=== PATIENT | female | born 1995 | race Caucasian/White ===

== ENCOUNTER 2021-06-26 07:27 | Outpatient (CLI) | payer OTHER, SELFPAY ==
[2021-06-26 09:00] LABS: SARS-CoV-2 RNA PCR Negative (Negative)
== END 2021-06-26 07:28 | disposition home or self-care (01) ==
PROVIDERS: PCP Family Medicine; Visit Provider Family Medicine
DX: J00 Acute nasopharyngitis [common cold] (principal); Z20.822 Contact with and (suspected) exposure to COVID-19
CPT/HCPCS: C9803; U0003; U0005

== ENCOUNTER 2021-10-10 16:30 | Outpatient (CLI) | payer OTHER, SELFPAY ==
--- NOTE | ~2021-10-10 | XR_ITS ---
EXAMINATION: XR foot LT min 3V, XR toe 5th LT min 2V DATE: 10/10/2021 16:51 INDICATION: Left foot pain in the region of the fifth toe. TECHNIQUE: 1. Dorsoplantar, two oblique and lateral views of the affected foot were obtained. 2. Dorsal plantar, oblique and lateral views of the left fifth toe were obtained. COMPARISON: None. FINDINGS: Nondisplaced fracture extending across the midportion of the fused middle and distal phalanges of the fifth toe with approximately 1 mm wide fracture gap along the plantar cortex and with mild buckling along the dorsal cortex. Alignment remains essentially anatomic. No other fractures identified in the left foot. Joint spaces are normal. Moderate-sized plantar calcaneal spur. Soft tissue swelling abou t the fifth toe. IMPRESSION: 1. Nondisplaced transverse extra-articular fracture across the fused left fifth middle and distal pha langes. Reviewed, dictated and finalized at location B. [employer] IMPRESSION: 1. Nondisplaced transverse extra-articular fracture across the fused left fifth middle and distal phalanges.
== END 2021-10-10 16:31 | disposition home or self-care (01) ==
LOC: CHSIMG 16:32
PROVIDERS: PCP Family Medicine; Visit Provider Family Medicine
DX: M79.672 Pain in left foot (principal)
CPT/HCPCS: 73630; 73660

== ENCOUNTER 2024-04-26 10:03 | Outpatient (CLI) | payer BC, OTHER, SELFPAY ==
[2024-04-26 10:23] LABS: Basophils Absolute Auto 0.08 K/mm3 (0.00-0.10); Basophils Percent Auto 1.1 % (0.0-1.0); Eosinophils Absolute Auto 0.35 K/mm3 (0.02-0.50); Eosinophils Percent Auto 4.6 % (1.0-6.0); Hematocrit 42.1 % (35.0-49.0); Hemoglobin 14.1 g/dL (12.0-15.0); Immature Granulocyte Absolute 0.04 K/mm3 (0.00-0.00); Immature Granulocyte Percent A 0.5 % (0.0-0.0); Lymphocytes Absolute Auto 1.79 K/mm3 (1.10-4.50); Lymphocytes Percent Auto 23.5 % (18.0-42.0); Mean Corpuscular HGB Conc 33.5 g/dL (32-36); Mean Corpuscular Hemoglobin 29.3 pg (27.0-31.0); Mean Corpuscular Volume 87.3 fL (78.0-102.0); Mean Platelet Volume 10.2 fl (9.2-11.8); Monocytes Absolute Auto 0.45 K/mm3 (0.10-0.90); Monocytes Percent Auto 5.9 % (2.0-11.0); Neutrophils Percent Auto 64.4 % (50.0-70.0); Platelet Count Result 378 K/mm3 (150-420); Red Blood Count 4.82 M/mm3 (4.20-5.40); Red Cell Distribution Width 12.9 % (11.6-14.4); White Blood Count 7.6 K/mm3 (4.8-10.8)
[2024-04-26 11:27] LABS: Anion Gap 10 mmol/L (4-12); Blood Urea Nitrogen 6 mg/dL (7-18); Calcium 9.1 mg/dL (8.5-10.1); Carbon Dioxide 26 mmol/L (21-32); Chloride 104 mmol/L (98-108); Cholesterol 133 mg/dL (0-200); Estimated Glomerular Filt Rate > 60; Glucose 88 mg/dL (70-99); HDL Direct 83 mg/dL (40-60); LDL Cholesterol Calculated 45 mg/dL (<130); Osmolality Calculated 286 mOsm/kg (285-295); Potassium 4.4 mmol/L (3.5-5.1); Sodium 140 mmol/L (136-145); Thyroid Stimulating Hormone 1.55 uIU/mL (0.36-3.74); Triglycerides 27 mg/dL (0-150)
== END 2024-04-26 10:04 | disposition home or self-care (01) ==
LOC: CHSLAB 10:09
PROVIDERS: PCP Family Medicine; Visit Provider Family Medicine
DX: R53.83 Other fatigue (principal); Z13.220 Encounter for screening for lipoid disorders
CPT/HCPCS: 36415; 80048; 80053; 80061; 84443; 85025